=== PATIENT | female | born 1995 | race Two or more races ===

== ENCOUNTER 2021-10-27 18:45 | Emergency (ER) | payer OTHER ==
[~2021-10-27] VITALS: Ht 167.6 cm; Wt 136.4 kg
[2021-10-27 23:50] VITALS: BP 141/90
[2021-10-28] MEDS ORDERED: DEXT1TAB46 PO
== END 2021-10-28 00:05 | disposition home or self-care (01) ==
LOC: ER 18:50
DX: J11.1 Influenza due to unidentified influenza virus with other respiratory manifestations (principal); Z20.822 Contact with and (suspected) exposure to COVID-19; Z32.02 Encounter for pregnancy test, result negative
CPT/HCPCS: 36415; 71045; 81025